=== PATIENT | male | born 1995 | race Caucasian/White ===

== ENCOUNTER 2017-08-14 16:36 | Emergency (ER) | payer OTHER ==
[2017-08-14 17:59] LABS: ABS Basophils 0.1 10^3/ul (0-0.2); ABS Eosinophils 0.1 10^3/ul (0-0.6); ABS Lymphocytes 1.7 10^3/ul (1.0-4.8); ABS Monocytes 1.1 10^3/ul (0-0.8); ABS Neutrophils 8.4 10^3/ul (1.5-7.7); ABS Nucleated RBC 0 10^3/ul; Eosinophil % 0.9 % (0-6); Hematocrit 45 % (42-52); Hemoglobin 15.8 g/dl (14.0-18.0); Lymphocyte % 14.8 % (25-47); Mean Corpuscular HGB Conc 35 g/dl (31-36); Mean Corpuscular Hemoglobin 30 pg (27-31); Mean Corpuscular Volume 85 fL (80-94); Mean Platelet Volume 9 um3 (7.4-10.4); Nucleated Red Blood Cells % 0.2; Platelet Count 229 10^3/ul (150-450); Red Cell Distribution Width 14 % (10.5-15); White Blood Count 11.4 10^3/ul (3.5-10.8)
[2017-08-14 18:14] LABS: EGFR Non-African American 98.5 (>60)
[2017-08-14] MEDS ORDERED: Metoclopramide IV* 5 MG/ML 2 ML VIAL IV SLOW PU ONE (20:10)
[2017-08-14] MEDS ORDERED: Ketorolac INJ* 30 MG/ML 1 ML VIAL IV PUSH ONE (20:10)
[2017-08-14] MEDS ORDERED: NS 0.9% 1000 ML* 1,000 ML IV ONE (20:10)
[2017-08-14] MEDS ORDERED: Iohexol 300* (CONTRAST) 10 ML SDV IV ONE (20:39)
[2017-08-14 21:25] LABS: Urine Appearance Clear; Urine Blood Negative (Negative); Urine Color Yellow; Urine Ketones Trace (Negative); Urine Protein Negative (Negative); Urine Specific Gravity 1.019 (1.010-1.030); Urine Urobilinogen Negative (Negative)
[2017-08-14] MEDS ORDERED: Magnesium CITRATE* 300 ML BTL PO ONE (23:40)
[2017-08-14] MEDS ORDERED: Bisacodyl SUPP* 10 MG SUPP PR ONE (23:40)
[2017-08-15 00:35] VITALS: BP 114/68
--- NOTE | 2017-08-15 07:37 | RAD ---
INDICATION: Abdominal pain COMPARISON: CT abdomen pelvis August 08, 2007 TECHNIQUE: Axial source images were obtained from the hemidiaphragms to the symphysis pubis following administration of oral and intravenous contrast. 100 mL Omnipaque 300 was utilized. Coronal and sagittal reconstructed images were acquired. Lung bases: The lung bases are clear. There is artifact at the base the heart consistent with the history of congenital heart surgery. Liver: The liver is normal in size. There are no masses. There is no ductal dilatation. Gallbladder: There are no calcified gallstones. There is no evidence of wall thickening or pericholecystic fluid. Spleen: The spleen is normal in size. There are no masses. Pancreas: There is no focal pancreatic mass or ductal dilatation. Adrenal glands: There is no evidence of adrenal mass. Kidneys: The kidneys are normal in size and position. There are prompt nephrograms and there is prompt excretion bilaterally. There are no renal parenchymal masses. There is no evidence of nephrolithiasis. Adenopathy: There is no evidence of adenopathy by size criteria. There are mildly prominent lymph nodes right lower quadrant. Consider mesenteric adenitis. Fluid collections: There are no free or localized fluid collections. Vessels:There are no significant atherosclerotic changes involving the aorta. There is no focal aneurysm. The iliac vessels are normal in caliber. The IVC appears normal. GI tract: There are no acute CT bowel findings. There is no obstruction. The stomach and small bowel appear normal. The lower GI tract is remarkable for rectal distention with stool. The cecum, ileocecal valve, and terminal ileum appear normal. The appendix is visualized and appear normal. Pelvic organs: The prostate and seminal vesicles appear normal Bladder: There are no bladder masses. Abdominal and pelvic soft tissues: The extraperitoneal abdominal and pelvic soft tissues appear normal.. Osseous structures: There are no acute osseous findings. Other: None IMPRESSION: 1. Mildly prominent lymph nodes right lower quadrant. Consider mesenteric lymphadenitis. 2. Possible fecal impaction
--- NOTE | 2017-08-20 21:52 | ED ---
Patrick Gaming Tiffany, scribed for Madhu Rene MD on 08/14/17 at 2028 . Abdominal Pain/Male - HPI Summary HPI Summary: The patient is a 21 y/o M c/o RLQ abdominal pain since three hours ago. The patient rates the pain 7/10 in severity. Symptoms aggravated by nothing. Symptoms alleviated by nothing. Reports nausea and vomiting. Denies diarrhea. - History of Current Complaint Chief Complaint: EDAbdPain Stated Complaint: ABD PAIN Time Seen by Provider: 08/14/17 19:30 Hx Obtained From: Patient Onset/Duration: Lasting Hours - Three hours ago, Still Present Timing: Constant Severity Currently: Moderate Pain Intensity: 7 Pain Scale Used: 0-10 Numeric - Allergies/Home Medications Allergies/Adverse Reactions: Allergies Allergy/AdvReac Type Severity Reaction Status Date / Time No Known Allergies Allergy Verified 02/23/16 18:06 PMH/Surg Hx/FS Hx/Imm Hx Previously Healthy: No Endocrine/Hematology History: Denies: Hx Anticoagulant Therapy, Hx Diabetes Cardiovascular History: Reports: 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 Denies: Hx Hypertension, Hx Pacemaker/ICD Respiratory History: Denies: Hx Asthma History: Denies: Hx Renal Disease Musculoskeletal History: Reports: Hx Back Problems Denies: Hx Scoliosis Sensory History: Denies: Hx Hearing Aid Neurological History: Reports: Hx Migraine Denies: Hx Headaches, Other Neuro Impairments/Disorders Psychiatric History: Denies: Hx Eating Disorder, Hx Panic Disorder, Hx of Violent Episodes Against Others - Surgical History Surgery Procedure, Year, and Place: AGE 7 - OPEN HEART SURGERY - PFO -AMPLATZER OCCLUDER IMPLANTED - NON-FERROMAGNETIC ( CARD IN PT'S EMR - OTHER FACILTY OP REPORT) Infectious Disease History: No Infectious Disease History: Denies: Traveled Outside the [place] in Last 30 Days - Family History Known Family History: Negative: Cardiac Disease, Diabetes - Social History Alcohol Use: None Hx Substance Use: No Substance Use Type: Reports: None Hx Tobacco Use: No Smoking Status (MU): Never Smoked Tobacco Have You Smoked in the Last Year: No Review of Systems Negative: Fever Positive: Abdominal Pain - RLQ, Vomiting, Nausea. Negative: Diarrhea All Other Systems Reviewed And Are Negative: Yes Physical Exam - Summary Physical Exam Summary: VITAL SIGNS: Reviewed. GENERAL: Patient is a well-developed and nourished male who is lying comfortable in the stretcher. Patient is not in any acute respiratory distress. HEAD AND FACE: No signs of trauma. No ecchymosis, hematomas or skull depressions. No sinus tenderness. EYES: PERRLA, EOMI x 2, No injected conjunctiva, no nystagmus. EARS: Hearing grossly intact. Ear canals and tympanic membranes are within normal limits. MOUTH: Oropharynx within normal limits. NECK: Supple, trachea is midline, no adenopathy, no JVD, no carotid bruit, no c- spine tenderness, neck with full ROM. CHEST: Symmetric, no tenderness at palpation LUNGS: Clear to auscultation bilaterally. No wheezing or crackles. CVS: Regular rate and rhythm, S1 and S2 present, no murmurs or gallops appreciated. ABDOMEN: RLQ tenderness EXTREMITIES: FROM in all major joints, no edema, no cyanosis or clubbing. NEURO: Alert and oriented x 3. No acute neurological deficits. Speech is normal and follows commands. SKIN: Dry and warm Triage Information Reviewed: Yes Vital Signs On Initial Exam: Initial Vitals Temp Pulse Resp BP Pulse Ox 99.5 F 120 16 144/88 99 08/14/17 16:43 08/14/17 16:43 08/14/17 16:43 08/14/17 16:43 08/14/17 16:43 Vital Signs Reviewed: Yes Diagnostics - Vital Signs Vital Signs Temp Pulse Resp BP Pulse Ox 08/14/17 16:43 99.5 F 120 16 144/88 99 - Laboratory Lab Results: Lab Results 08/14/17 08/14/17 08/14/17 Range/Units 17:50 17:50 17:50 WBC 11.4 H (3.5-10.8) 10^3/ul RBC 5.30 (4.0-5.4) 10^6/ul Hgb 15.8 (14.0-18.0) g/dl Hct 45 (42-52) % MCV 85 (80-94) fL MCH 30 (27-31) pg MCHC 35 (31-36) g/dl RDW 14 (10.5-15) % Plt Count 229 (150-450) 10^3/ul MPV 9 (7.4-10.4) um3 Neut % (Auto) 74.1 (38-83) % Lymph % (Auto) 14.8 L (25-47) % [place] % (Auto) 9.5 H (0-7) % Eos % (Auto) 0.9 (0-6) % Baso % (Auto) 0.7 (0-2) % Absolute Neuts (auto) 8.4 H (1.5-7.7) 10^3/ul Absolute Lymphs (auto) 1.7 (1.0-4.8) 10^3/ul Absolute Monos (auto) 1.1 H (0-0.8) 10^3/ul Absolute Eos (auto) 0.1 (0-0.6) 10^3/ul Absolute Basos (auto) 0.1 (0-0.2) 10^3/ul Absolute Nucleated RBC 0 10^3/ul Nucleated RBC % 0.2 Sodium 139 (133-145) mmol/L Potassium 3.8 (3.5-5.0) mmol/L Chloride 104 (101-111) mmol/L Carbon Dioxide 27 (22-32) mmol/L Anion Gap 8 (2-11) mmol/L BUN 12 (6-24) mg/dL Creatinine 0.98 (0.67-1.17) mg/dL Est GFR ( Amer) 126.7 (>60) Est GFR (Non-Af Amer) 98.5 (>60) BUN/Creatinine Ratio 12.2 (8-20) Glucose 84 (70-100) mg/dL Lactic Acid 1.1 (0.5-2.0) mmol/L Calcium 10.3 (8.6-10.3) mg/dL Total Bilirubin 0.40 (0.2-1.0) mg/dL AST 20 (13-39) U/L ALT 20 (7-52) U/L Alkaline Phosphatase 88 (34-104) U/L C-Reactive Protein 11.10 H (< 5.00) mg/L Total Protein 8.2 (6.4-8.9) g/dL Albumin 5.0 (3.2-5.2) g/dL Globulin 3.2 (2-4) g/dL Albumin/Globulin Ratio 1.6 (1-3) Lipase < 10 L (11.0-82.0) U/L Result Diagrams: 08/14/17 17:50 08/14/17 17:50 Lab Statement: Any lab studies that have been ordered have been reviewed, and results considered in the medical decision making process. - CT CT Abd/Pel CT Interpretation Completed By: Radiologist - The visualized lung bases are clear. Metallic densities in the regoin of the intra-atrial septum possibly related to prior septal repair. The upper abdominal visceral organs are unremarkable. There is no bowel obstruction or distention. A normal appendix is visualized. There is a large amount of retained stool in the rectum with concern for possible impaction. Shotty mesenteric lymph nodes int he right lower quadrant measure up to 9 mm in short axis. Mesenteric adenitis is a consideration. No intra-abdominal free air, free fluid or loculated collections. ED physician reviewed this radiology report. Abdominal Pain Fem Course/Dx - Course Assessment/Plan: The patient is a 21 y/o M c/o RLQ abdominal pain since three hours ago. The patient rates the pain 7/10 in severity. Reports nausea and vomiting. Denies diarrhea. CT Abd/Pel findings above. UA and bloodwork were done. In the ED course, pt received Dulcolax, Toradol, citrate of magnesia, reglan and fluids. Pt will be D/C to home with Dx of constipation. He understands and agrees. - Diagnoses Provider Diagnoses: Constipation Discharge - Discharge Plan Condition: Stable Disposition: HOME Patient Education Materials: Constipation (ED), High Fiber Diet (ED) Referrals: Kimberly Sanchez DO [Primary Care Provider] - 3 Days Additional Instructions: RETURN TO EMERGENCY DEPARTMENT FOR ANY RETURNING OR WORSENING SYMPTOMS The documentation as recorded by the Patrick barrientos Tiffany accurately reflects the service I personally performed and the decisions made by , Madhu Rene MD.
== END 2017-08-15 00:34 | disposition home or self-care (01) ==
LOC: ED 16:36
DX: K59.00 Constipation, unspecified (principal)
CPT/HCPCS: 36415; 74177; 80053; 81003; 83605; 83690; 85025; 86140; 96360; 96361; 99283; A9270-GY; Q9967

== ENCOUNTER 2021-07-16 20:07 | Inpatient (IN) ==
[2021-07-16] MEDS ORDERED: Lorazepam PYXIS KEY PRN (20:30)
[2021-07-16] MEDS ORDERED: LORazepam 2 mg VIAL 1 ml IM ONE (20:30)
[2021-07-16] MEDS ORDERED: Droperidol 5 MG/2 ML 2 ML VIAL IM ONE (20:30)
[2021-07-16 21:59] LABS: ABS Eosinophils 0.1 10^3/ul (0-0.6); ABS Lymphocytes 1.2 10^3/ul (1.0-4.8); ABS Monocytes 1.2 10^3/ul (0-0.8); ABS Neutrophils 9.7 10^3/ul (1.5-7.7); Eosinophil % 0.8 %; Hematocrit 44 % (42-52); Lymphocyte % 9.5 %; Mean Corpuscular HGB Conc 34 g/dL (31-36); Mean Corpuscular Hemoglobin 29 pg (27-31); Mean Corpuscular Volume 86 fL (80-94); Mean Platelet Volume 9.3 fL (7.4-10.4); Platelet Count 216 10^3/uL (150-450); Red Blood Count 5.13 10^6 /uL (4.18-5.48); Red Cell Distribution Width 14 % (10-15); White Blood Count 12.2 10^3/uL (3.5-10.8)
[2021-07-16 22:06] LABS: Urine Appearance Clear; Urine Bilirubin Negative (Negative); Urine Blood Negative (Negative); Urine Color Yellow; Urine Glucose Negative (Negative); Urine Ketones Negative (Negative); Urine Nitrite Negative (Negative); Urine Protein Negative (Negative); Urine Specific Gravity 1.028 (1.002-1.030); Urine Urobilinogen Negative (Negative)
[2021-07-16 22:13] LABS: ALT 27 U/L (7-52); AST 19 U/L (13-39); Albumin 4.6 g/dL (3.2-5.2); Albumin/Globulin Ratio 1.6 (1-3); Alkaline Phosphatase 86 U/L (35-149); Anion Gap 12 mmol/L (2-11); Blood Urea Nitrogen 15 mg/dL (6-24); CO2 Carbon Dioxide 21 mmol/L (22-32); Calcium 9.6 mg/dL (8.6-10.3); Chloride 106 mmol/L (101-111); Globulin 2.9 g/dL (2-4); Glucose 100 mg/dL (70-100); Potassium 3.8 mmol/L (3.5-5.0); Sodium 139 mmol/L (135-145); Total Protein 7.5 g/dL (6.4-8.9); eGFR CKD-EPI 109.8 (>60)
[2021-07-16 22:28] LABS: Urine Benzodiazepine Screen None Detected (None Detect); Urine Cannabinoids Screen None Detected (None Detect); Urine Opiates Screen None Detected (None Detect)
[2021-07-16 22:34] LABS: Acetaminophen < 15 mcg/mL; Alcohol, S < 13 mg/dL (<13); Salicylate < 2.50 mg/dL (<30)
[2021-07-16 22:48] LABS: TSH Ultra Thyroid Stim Horm 1.48 mcIU/mL (0.34-5.60)
[2021-07-16] MEDS ORDERED: Ramelteon 8 mg TAB (NF) PO ONE (23:26)
[2021-07-17 02:48] LABS: Rapid COVID-19 Molecular Undetected (Undetected)
[2021-07-17] MEDS ORDERED: Al Hydrox/Mg Hydrox/Simet LIQ 30 ML UDC PO PRN (03:19)
[2021-07-17] MEDS: Vitamin THERAPEUTIC TAB PO SCH (10:38)
[2021-07-17] MEDS: Ramelteon 8 mg TAB (NF) PO SCH (19:21)
[2021-07-18] MEDS: Vitamin THERAPEUTIC TAB PO SCH (09:48)
[2021-07-18] MEDS: Ramelteon 8 mg TAB (NF) PO SCH (21:01)
[2021-07-19 08:09] VITALS: BP 126/84
[2021-07-19] MEDS: Vitamin THERAPEUTIC TAB PO SCH (09:19)
== END 2021-07-19 11:07 | disposition home or self-care (01) | DRG 751 ==
LOC: ED 20:07 → BSU 07-17 01:20
PROVIDERS: ADMIT Psychiatry & Neurology Psychiatry; ATTEND Psychiatry & Neurology Psychiatry

== ENCOUNTER 2021-09-17 15:03 | Inpatient (IN) ==
[2021-09-17 16:41] LABS: Urine Appearance Clear; Urine Bilirubin Negative (Negative); Urine Blood Negative (Negative); Urine Color Straw; Urine Glucose Negative (Negative); Urine Ketones Negative (Negative); Urine Nitrite Negative (Negative); Urine Protein Negative (Negative); Urine Specific Gravity 1.008 (1.002-1.030); Urine Urobilinogen Negative (Negative)
[2021-09-17 16:55] LABS: Urine Benzodiazepine Screen None Detected (None Detect); Urine Cannabinoids Screen None Detected (None Detect); Urine Opiates Screen Presumptive Positive (None Detect)
[2021-09-17] MEDS ORDERED: Al Hydrox/Mg Hydrox/Simet LIQ 30 ML UDC PO PRN (23:46)
[2021-09-18] MEDS ORDERED: Ramelteon 8 mg TAB (NF) PO PRN (00:32)
[2021-09-18] MEDS: Vitamin THERAPEUTIC TAB PO SCH (09:41)
[2021-09-19] MEDS: Vitamin THERAPEUTIC TAB PO SCH (09:02)
[2021-09-20] MEDS: Vitamin THERAPEUTIC TAB PO SCH (09:11)
[2021-09-20 10:24] VITALS: BP 127/88
== END 2021-09-20 12:30 | disposition home or self-care (01) | DRG 751 ==
LOC: ED 15:03 → BSU 23:46
PROVIDERS: ADMIT Psychiatry & Neurology Psychiatry; ATTEND Psychiatry & Neurology Psychiatry